=== PATIENT | female | born 1950 | race Caucasian/White ===

== ENCOUNTER 2016-10-19 14:20 | Emergency (ER) | payer OTHER ==
--- NOTE | ~2016-10-19 | CR63 ---
[facility] A Service of [facility] RADIOLOGY TEXT RESULTS PATIENT: DALIA FOSS LOCATION: SED : 54 UNIT #: [id number] AGE: [address]: Imani Osman APRN SEX: F ORDER DR: [id number] [place] [id number] E MR#: [id number] Acc #: [id number] NAME: DALIA FOSS : 1950 SEX: F STUDY DATE/TIME: 10/19/2016 14:26 UNIT: SED ROOM: STUDY DESCRIPTION: CR Chest 2 View Attending Physician: Imani Osman A.P.R.N. Ordering Physician: Imani Osman A.P.R.N. Primary Care Physician: Jayden Hurd M.D. MEDICAL IMAGING REPORT This report is preliminary unless electronic signature is present. EXAM 2 views chest. DATE OF EXAM 10/19/2016 HISTORY Sinus cough, congestion 2-3 days. REPORT PA and lateral radiographs of the chest are presented. COMPARISON 05/15/2015. FINDINGS Degenerative changes in spine. Heart [id number] limits of normal in size. Stable. Lungs well inflated bilaterally. There is no evidence of acute infectious or inflammatory disease. No pleural effusion or pneumothorax. No suspicious nodule. Calcified granulomata bilaterally. Dictated by... Vick Blum M.D. THIS IS AN ELECTRONICALLY VERIFIED REPORT Vick Blum M.D. at 10/23/2016 7:36 AM YSABEL/moreno TD: 10/19/2016 16:44 JOB #: [id number] [facility] A Service [facility] RADIOLOGY TEXT RESULTS PATIENT: DALIA FOSS LOCATION: SED : 54 UNIT #: [id number] AGE: [address]: Imani Osman APRN SEX: F ORDER DR: MEDICAL IMAGING REPORT Page 1 of 1
[~2016-10-19 14:20] MED LIST: ALLEGRA PO; FENOFIBRATE160 MG PO; LEVOXYL125 MC1 PO; LISINOPRIL5 MG PO; METFORMIN PO; MULTI VITAMIN1 EACH PO; NORFLEX100 M1 PO; OMEGA 3 FISH1 CAP.EC PO; PRILOSEC40 MG PO; VICTOZA0.6 MG/0.1; [UNRECOGNIZED DRUG - SUPPLY]
== END 2016-10-19 15:13 | disposition home or self-care (01) ==
LOC: SED 14:20
DX: J45.901 Unspecified asthma with (acute) exacerbation (principal); J06.9 Acute upper respiratory infection, unspecified; E11.9 Type 2 diabetes mellitus without complications; K21.9 Gastro-esophageal reflux disease without esophagitis
CPT/HCPCS: 71020; 99283

== ENCOUNTER 2016-10-25 16:34 | Emergency (ER) | payer OTHER ==
--- NOTE | ~2016-10-25 | EKG ---
PATIENT: DALIA FOSS UNIT #: [id number] Ventricular Rate: 98 BPM Atrial Rate: 98 BPM P-R Interval: 140 ms QRS Duration: 88 ms Q-T Interval: 346 ms QTC Calculation(Bezet): 441 ms P Ceres: 25 degrees Calculated R Ceres: 8 degrees Calculated T Ceres: 27 degrees Diagnosis Line: Normal sinus rhythm Diagnosis Line: Normal ECG Diagnosis Line: When compared with ECG of 15-MAY-2015 17:57, Diagnosis Line: No significant change was found Diagnosis Line: Confirmed by PATRICK YAO MD ([id number]) on 10/28/2016 Diagnosis Line: 4:00:09 PM INTERPRETING MD: NAJMA BUSH
--- NOTE | ~2016-10-25 | CR72 ---
[facility] A Service of [facility] RADIOLOGY TEXT RESULTS PATIENT: DALIA FOSS LOCATION: [facility] : 54 UNIT #: [id number] AGE: [address]: Herman Petersen MD SEX: F ORDER DR: [id number] [facility] [address] [place], [place] [address] [id number] E MR#: [id number] Acc #: [id number] NAME: DALIA FOSS : 1950 SEX: F STUDY DATE/TIME: 10/25/2016 16:58 UNIT: [facility] ROOM: STUDY DESCRIPTION: CR Chest Single View Portable Attending Physician: Herman Petersen M.D. Ordering Physician: Herman Petersen M.D. Primary Care Physician: Jayden Hurd M.D. MEDICAL IMAGING REPORT This report is preliminary unless electronic signature is present EXAM Portable chest x-ray 10/25/2016 HISTORY Cough FINDINGS AP radiograph of the chest is presented. Patient gives additional history of cough, congestion, fever since last Saturday. The comparison study is dated 10/19/2016. Heart normal to upper limits in size. Stable appearance. Lung volumes lower than on the prior examination. There is no clear indication of acute or infectious or inflammatory disease. No pleural effusion or pneumothorax. No suspicious nodule. Healed granulomatous disease unchanged. No acute appearing bony abnormality. Degenerative changes in the spine. Dictated by... Vick Blum M.D. THIS IS AN ELECTRONICALLY VERIFIED REPORT Vick Blum M.D. at 10/26/2016 6:48 PM YSABEL/tyree TD: 10/25/2016 20:22 JOB #: [id number] MEDICAL IMAGING REPORT Page 1 of 1 COPY
[2016-10-25 17:21] LABS: BASOPHIL% 0.5 % (0-2.5); EOSINOPHIL# 0.1 X10e3 (0-0.7); EOSINOPHIL% 0.7 % (0.0-7.0); HEMATOCRIT 38.8 % (35.0-45.0); HEMOGLOBIN 12.5 gm/dL (12.0-16.0); LYMPHOCYTE# 1.3 X10e3 (1.0-3.5); LYMPHOCYTE% 15.3 % (17.0-45.0); MEAN CELL VOLUME 82.1 FL (83-96); MEAN CORPUSCULAR HEMOGLOBIN 26.5 PG (28-34); MEAN CORPUSCULAR HGB CONC 32.2 g/dL (30-36); MEAN PLATELET VOLUME 8.1 FL (6.5-11.5); MONOCYTE# 0.7 X10e3 (0-1.0); NEUTROPHIL# 6.6 X10e3 (1.5-7.1); NEUTROPHIL% 75.5 % (40-75); PLATELET COUNT 193 X10e3 (140-420); RED BLOOD COUNT 4.73 X10e (3.90-5.30); RED CELL DISTRIBUTION WIDTH 14.8 % (11.0-15.5); WHITE BLOOD COUNT 8.8 X10e3 (4.0-10.5)
[2016-10-25 17:24] LABS: DIFF IND NO
[2016-10-25 17:35] LABS: URINE SOURCE CLEAN CATCH
[2016-10-25 17:35] LABS: INR 1.1; PARTIAL THROMBOPLASTIN TIME 26.4 SECONDS (23.5-31.3); PROTHROMBIN TIME (PATIENT) 11.3 SECONDS (9.6-11.5)
[2016-10-25 17:41] LABS: ALBUMIN SERUM 4.1 g/dL (3.5-5.0); BILIRUBIN, DIRECT 0.1 mg/dL (0.0-0.2); BILIRUBIN,INDIRECT 0.1 mg/dL (0.0-0.9); BILIRUBIN,TOTAL 0.2 mg/dL (0.2-2.0); CALCIUM SERUM 8.8 mg/dL (8.4-10.2); GLOM FILT RATE Estimated 59.9 mL/min (>60); MAGNESIUM 1.7 mg/dL (1.6-3.0); PHOSPHOROUS 2.6 mg/dL (2.5-4.6); POTASSIUM 4.2 mmol/L (3.5-5.1); PROTEIN TOTAL SERUM 7.8 g/dL (6.0-8.3)
[2016-10-25 17:44] LABS: URINE APPEARANCE CLEAR; URINE BILIRUBIN NEG (NEG); URINE BLOOD NEG (NEG); URINE COLOR YELLOW; URINE GLUCOSE 100 MG/DL (NEG); URINE KETONE NEG (NEG); URINE LEUKOCYTE ESTERASE NEG (NEG); URINE NITRATE NEG (NEG); URINE PROTEIN NEG (NEG); URINE SPECIFIC GRAVITY 1.022 (1.003-1.035); URINE UROBILINOGEN 0.2 MG/DL (NEG)
[2016-10-25 17:50] LABS: POC - CKMB 2.9 ng/mL (0.0-7.9); POC - TROPONIN <0.05 ng/mL (<=0.05)
[2016-10-25 17:51] LABS: CULTURE INDICATED? NO
== END 2016-10-25 19:10 | disposition home or self-care (01) ==
LOC: CED 16:34
PROVIDERS: Emergency Medicine
DX: R06.02 Shortness of breath (principal); R50.9 Fever, unspecified; R05 Cough; K21.9 Gastro-esophageal reflux disease without esophagitis; E11.9 Type 2 diabetes mellitus without complications; M48.00 Spinal stenosis, site unspecified; Z90.710 Acquired absence of both cervix and uterus; Z88.0 Allergy status to penicillin; Z88.1 Allergy status to other antibiotic agents; Z88.8 Allergy status to other drugs, medicaments and biological substances; Z79.899 Other long term (current) drug therapy; Z79.4 Long term (current) use of insulin
CPT/HCPCS: 36415; 71010; 80048; 80076; 81003; 82150; 82553; 83605; 83690; 83735; 84100; 84484; 85025; 85610; 85730; 87040; 93005; 96360; 99284